=== PATIENT | female | born 1935 | race Caucasian/White ===

== ENCOUNTER 2021-12-08 17:31 | Emergency (ER) | payer MEDICARE ==
[2021-12-08] MEDS ORDERED: Boostrix 0.5 ML (Tdap) VIAL ONE (17:50)
== END 2021-12-08 18:32 | disposition home or self-care (01) ==
LOC: BURERS 17:31
DX: S41.112A Laceration without foreign body of left upper arm, initial encounter (principal); X58.XXXA Exposure to other specified factors, initial encounter; Z23 Encounter for immunization; Z95.0 Presence of cardiac pacemaker
CPT/HCPCS: 90471; 90715; 99283

== ENCOUNTER 2022-03-14 09:05 | Emergency (ER) | payer MEDICARE | END 2022-03-14 10:29 | disposition home or self-care (01) | LOC: BURERS 09:05 | DX: S01.01XA Laceration without foreign body of scalp, initial encounter (principal); W18.31XA Fall on same level due to stepping on an object, initial encounter | CPT/HCPCS: 12001; 70450 ==